=== PATIENT | male | born 1990 | race African-American/Black ===

== ENCOUNTER 2018-09-09 16:46 | Emergency (ER) | payer SELFPAY ==
[~2018-09-09] VITALS: Ht 170.2 cm; Wt 72.6 kg
[2018-09-09 16:49] VITALS: BP 132/81
[2018-09-09] MEDS ORDERED: TYLENOL EXTRA500 MG ORAL (17:12)
[2018-09-09] MEDS ORDERED: ZOFRAN4 M3 ORAL (17:12)
--- NOTE | 2018-09-09 17:13 | Emergency Room Report ---
History of Present Illness General Chief Complaint: Flu Like Symptoms Source: Patient Present Illness HPI 28-year-old male patient presents the ER complaining of vomiting and diarrhea for the past 3 days. Patient reports last episode of vomiting was earlier today following eating [employer]. Patient reports that he has been able tolerate p.o. fluids during this time. Patient denies blood in vomiting or stool. Reports diarrhea is watery. Denies recent travel outside the country. Denies contacts with similar symptoms. Denies fever, chest pain, shortness of breath. Reports generalized abdominal pain. Reports up-to-date on vaccinations. Currently working at a new job where he has been trying new foods. Allergies: Coded Allergies: No Known Allergies (Unverified , 09/09/18) Patient History Past Medical History: see triage record Reviewed Nursing Documentation: PMH: Agreed; PSxH: Agreed Nursing Documentation-PMH Past Medical History: No History, Except For Review of Systems All Other Systems: negative except mentioned in HPI Physical Exam Vital Signs Date Time Temp Pulse Resp B/P (MAP) Pulse Ox O2 Delivery O2 Flow Rate FiO2 09/09/18 16:49 98.4 81 20 132/81 97 Room Air Sp02 EP Interpretation: reviewed, normal General Appearance: well appearing, no apparent distress, alert, GCS 15, non- toxic Head: normocephalic, atraumatic Eyes: bilateral eye normal inspection, bilateral eye PERRL ENT: hearing grossly normal, normal pharynx, no angioedema, normal voice, uvula midline, moist mucus membranes Neck: full range of motion Respiratory: lungs clear, normal breath sounds, no rhonchi, no respiratory distress, no accessory muscle use, no wheezing, speaking full sentences Cardiovascular #1: regular rate, rhythm, no edema Cardiovascular #2: 2+ radial (R), 2+ radial (L) Gastrointestinal: soft, no mass, non-distended, no guarding, no rebound, tenderness - Generalized, nonspecific, diffuse, other - Negative Rovsing, negative Franks, negative obturator Genitourinary: no CVA tenderness Musculoskeletal: back normal, digits/nails normal, gait/station normal, normal range of motion, non-tender Neurologic: alert, oriented x3, responsive, motor strength/tone normal, sensory intact Psychiatric: mood/affect normal Skin: no rash, well hydrated, normal turgor Lymphatic: no adenopathy Medical Decision Making PA Attestation Dr. Steele is my supervising Physician whom patient management has been discussed with. Diagnostic Impression: Primary Impression: Vomiting and diarrhea ER Course Pt. presents to the ED c/o vomiting and diarrhea. Ddx considered but are not limited to viral syndrome, gastritis, enteritis, food poisoning, GERD, reflux, influenza. Vital signs: are WNL, pt. is afebrile. Ordered zofran and Tylenol. ED COURSE: Provided with Zorfan and Tylenol in the ER. Physical exam benign, no abdominal TTP, negative Franks sign, negative Rovsing, negative obturator, low suspicion for appendicitis or cholecystitis, does not require labs or imaging at this time. Patient is afebrile, not jaundiced, not vomiting, low suspicion for cholecystitis. Does not require labs and evaluation at this time. Okay for outpatient evaluation and treatment.Advised patient to keep food journal. No fever, no blood in stool, no recent travel or hospitalizations, does not require abx treatment at this time. No signs of dehydration, moist mucus membranes, cap refill <2seconds, normal skin turgor. Patient history consistent with likely viral etiology of symptoms. Patient instructed on clear liquid and BRAT diet. Patient instructed to remain hydrated, drink plenty of fluids. Patient questions asked and answered. Patient states understanding and agreement to treatment plan. ER precautions given, return to ER for new or worsening of symptoms. DISCHARGE: Rx provided for Tylenol for pain symptoms Rx provided for zofran At this time pt. is stable for d/c to home. Patient is resting comfortably, laughing, in no acute distress, nontoxic appearing. Will provide printed patient care instructions, and any necessary prescriptions. Care plan and follow up instructions have been discussed with the patient prior to discharge. Patient instructed to followup with PCP in 3-5 days. Patient reports understanding and agreement to treatment plan. Patient questions asked and answered. ER precautions given; patient instructed to return to ER for new or worsening of symptoms including but not limited to fever, intractable vomiting, severe abdominal pain, blood in stool. - Please note that this Emergency Department Report was dictated using [employer] technology software, occasionally this can lead to erroneous entry secondary to interpretation by the dictation equipment. Last Vital Signs Date Time Temp Pulse Resp B/P (MAP) Pulse Ox O2 Delivery O2 Flow Rate FiO2 09/09/18 16:59 81 20 Room Air 09/09/18 16:49 98.4 132/81 97 Disposition: HOME, SELF-CARE Condition: Stable Scripts Acetaminophen* (TYLENOL EXTRA STRENGTH*) 500 Mg Tablet 500 MG ORAL Q8H PRN for Prn Headache/Temp > 101, #30 TAB 0 Refills Prov: Zach Portillo 09/09/18 Ondansetron* (ZOFRAN*) 4 Mg Tablet 4 MG ORAL Q6H PRN for Nausea & Vomiting, #6 TAB Prov: Zach Portillo 09/09/18 Patient Instructions: Diarrhea, Adult, [id number], Food Choices to Help Relieve Diarrhea, Adult, Nausea and Vomiting, Adult, [id number] Additional Instructions: Followup with primary care provider in 3 -5 days. Avoid spicy foods, avoid dairy foods. Avoid fatty foods. BRAT diet: bananas, rice, apple sauce, toast. Clear liquid diet. Consider Immodium for diarrhea and Tylenol for pain symptoms. Take medications as directed. Patient questions asked and answered. ER precautions given, patient instructed to return to ER immediately for any new or worsening of symptoms. Zach Portillo Sep 09, 2018 17:13
[2018-09-09 17:23] VITALS: BP 132/81
== END 2018-09-09 17:23 | disposition home or self-care (01) ==
LOC: EMR 17:20
DX: R11.10 Vomiting, unspecified (principal); R19.7 Diarrhea, unspecified
CPT/HCPCS: 99283